=== PATIENT | female | born 1975 | race African-American/Black ===

== ENCOUNTER 2017-03-02 09:15 | Outpatient (CLI) | payer OTHER | END 2017-03-02 11:00 | disposition home or self-care (01) | LOC: MAMMO 09:15 | DX: Z12.31 Encounter for screening mammogram for malignant neoplasm of breast (principal) | CPT/HCPCS: G0202-TC ==

== ENCOUNTER 2019-05-02 10:53 | Outpatient (CLI) | payer OTHER | END 2019-05-02 20:42 | disposition home or self-care (01) | LOC: MAMMO 10:53 | DX: N63.0 Unspecified lump in unspecified breast (principal) ==